=== PATIENT | female | born 1955 | race Hispanic/Latino ===

== ENCOUNTER 2017-01-12 12:22 | Day surgery (SDC) | payer MEDICARE, MEDICAID ==
[2015-08-15 13:03] VITALS: BMI 30.2
[2017-01-12] MEDS ORDERED: Lidocaine 2% Inj (20ml) ONE (12:58)
[2017-01-12] MEDS ORDERED: Iodixanol 320 MG/ML 200 ML BOTTLE IV ONE (12:59)
[2017-01-12] MEDS ORDERED: Nitroglycerin 50mg in D5W 50 MG/250 ML BOTTLE IV ONE (12:59)
[2017-01-12] MEDS ORDERED: Iohexol 350mgl/ml 50 ML ONE (12:59)
[2017-01-12] MEDS ORDERED: Iodixanol 320 MG/ML 100 ML BOTTLE IV ONE ×2 (12:59→15:49)
[2017-01-12 13:05] LABS: ADD MANUAL DIFF? NO
[2017-01-12 13:12] LABS: BASO # 0.03 K/mm3 (0.0-2.0); BASO % 0.5 % (0.0-3.0); EOS # 0.1 (0.0-0.7); EOS % 2.2 % (1.5-5.0); GRAN # 3.13 (1.4-6.5); GRAN % 49.6 % (50.0-68.0); HEMATOCRIT 38.6 % (36.0-48.0); LYMPH # 2.6 (1.2-3.4); LYMPH % 40.7 % (22.0-35.0); MEAN CELL VOLUME 89.4 fL (80.0-105.0); MEAN CORPUSCULAR HEMOGLOBIN 30.6 pg (25.0-35.0); MEAN CORPUSCULAR HGB CONC 34.2 g/dl (31.0-37.0); MEAN PLATELET VOLUME 9.8 fl (7.0-11.0); MONO # 0.4 (0.1-0.6); PLATELET COUNT 252 10^3/uL (120.0-450.0); RED CELL DISTRIBUTION WIDTH 14.9 % (11.5-14.5); WHITE BLOOD COUNT 6.3 10^3/ul (4.5-11.0)
[2017-01-12 13:20] LABS: BLOOD UREA NITROGEN 19 mg/dL (7-21); CALCIUM 9.6 mg/dL (8.4-10.5); CARBON DIOXIDE 29 mmol/L (21-33); CHLORIDE 101 mmol/L (98-107); GFR AFRICAN-AMERICAN > 60; GLUCOSE,RANDOM 97 mg/dL (70-110); POTASSIUM 3.8 mmol/L (3.6-5.0); SODIUM 139 mmol/L (132-148)
[2017-01-12 13:23] LABS: INR 0.96 (0.93-1.08); PARTIAL THROMBOPLASTIN TIME 27.5 Seconds (23.7-30.8)
--- NOTE | 2017-01-12 13:49 | CP.SDSHP ---
Same Day Surgery H & P - History Proposed Procedure: femoral angiogram. Pre-Op Diagnosis: PVD. - Previous Medical/Surgical History Cardiac: Hypertension, ASHD/CAD, PVD Pulmonary: Bronchitis, Smoking Endocrine/Metabolic: Thyroid Disease, Diabetes Neuro: Headaches, Backaches Misc: Anemia Pain: 0. No Pain - Allergies Allergies: Allergies clopidogrel [From Plavix] Allergy (Intermediate, Verified 01/11/17 11:40) RASH - Physical Exam General Appearance: wnl. Vital Signs: Vital Signs 01/12/17 13:14 Temperature 98 F Pulse Rate 65 Respiratory 20 Rate Blood Pressure 137/99 H O2 Sat by Pulse 100 Oximetry Mental Status: Alert & Oriented x3 Neuro: WNL Heart: WNL Lungs: WNL GI: WNL - {Optional Preform as Required} Other Pertinent Findings: gerd.hiatal hernia. - Impression Impression: PVD. - Date & Time Date: 01/12/17 Time: 13:49 Short Stay Discharge - Short Stay Discharge Admitting Diagnosis/Reason for Visit: I70.221 Disposition: HOME/ ROUTINE Referrals: Lauren Boston DO [Primary Care Provider] -
[2017-01-12] MEDS ORDERED: Midazolam 2 MG/2 ML VIAL ONE ×2 (14:02→15:41)
[2017-01-12] MEDS ORDERED: Oxycodone/Acetaminophen 5/325 mg Tab PO PRN (17:03)
--- NOTE | 2017-01-12 17:57 | VASCULAR ---
PROCEDURE: 1. Abdominal aortogram and bilateral lower extremity runoff with right selective views. 2. Distal right SFA silver Hawk atherectomy and drug-eluting balloon angioplasty HISTORY: Severe peripheral vascular disease. Ischemic pain right foot with digital gangrene. Smoker. Diabetes. PHYSICIAN(S): Bassem Ospina M.D. TECHNIQUE: The relative risks and indications of the procedure were explained to the patient and consent obtained. The patient was hydrated prior to the procedure and the appropriate labs drawn. The patient was placed supine on the arteriogram table and the left groin prepped and draped in the usual sterile fashion. Conscious sedation and monitoring were provided throughout the procedure by a nurse. Via a left common femoral artery approach, a 5 B[place]udian sheath was placed in the left groin. Through the sheath and over a guidewire, a 5 [place] flush catheter was placed in the abdominal aorta at the level of the renal arteries and a PA DSA abdominal aortogram performed. The catheter was pulled down to the aortic bifurcation and bilateral oblique DSA pelvic arteriograms performed. Overlapping bilateral lower extremity DSA arteriograms were obtained from the inguinal ligaments to the ankles. A 0.035 angled Glidewire was advanced over the bifurcation and placed in the mid right SFA.. A 7 [place]ian 45 cm destination sheath was placed in the proximal right SFA. Heparin 5000 units IV and nitroglycerin in 250 mcg aliquots were given. The short segment occlusion in the distal right SFA was crossed easily with a trail blazer catheter and angled Glidewire. Exchange was made for a 0.014 support guidewire. Silver Hawk atherectomy of the distal right SFA was performed with an LS catheter. Approximately 5 passes were performed. Improved but suboptimal result was obtained. The distal right SFA was dilated with 6 mm x 150 mm drug-eluting balloon. No stent was required. Completion angiograms were obtained. The sheath was removed and hemostasis obtained with a Perclose device. The patient tolerated the procedure well. FINDINGS: There are single renal arteries bilaterally which are widely patent and normal in appearance. The nephrograms are symmetric in appearance. The infrarenal abdominal aorta is widely patent without a radiographically significant stenosis. The aortic bifurcation is widely patent. The common and external iliac arteries are normal in appearance without a significant stenosis. The internal iliac arteries are patent bilaterally. Right lower extremity: The right common femoral artery is patent. The right profunda femoral artery is hypertrophied. There is a 5 cm calcified occlusion in the distal right SFA. The right popliteal artery is patent and continuous. The right trifurcation is intact. There is significant tibial occlusive disease. The right posterior tibial and peroneal arteries are occluded. The right anterior tibial artery is a predominant supply to the foot. The right anterior tibial artery occludes at the ankle. Collaterals are present. The right dorsalis pedis artery is occluded. There is occlusive disease of the plantar arch. There is severe pedal occlusive disease. Left lower extremity: Left common femoral artery is patent. The left profunda femoral artery is hypertrophied. There is a critical stenosis of the origin of the left SFA. It is 3-4 cm in length. There is calcified disease of the mid to lower left SFA which is continuous. The left popliteal artery is patent and continuous. The left trifurcation is intact. There is 1 vessel runoff on the left via the anterior tibial artery. The left posterior tibial and peroneal arteries are occluded. IMPRESSION: 1.Short segment distal right SFA occlusion. 2. Successful distal right SFA silver Hawk atherectomy and drug-eluting balloon angioplasty 3. Severe bilateral tibial disease 4. Extensive and severe right pedal occlusive disease. 5. Critical proximal left SFA stenosis.
--- NOTE | 2017-01-12 20:10 | CP.PCM.PN ---
Subjective - Date & Time of Evaluation Date of Evaluation: 01/12/17 Time of Evaluation: 20:10 - Subjective Subjective: Patient was seen at bedside because she had tachycardia 120-130's on monitor. Also complained of pain in right foot. BP 175/78, HR 130/ min.,afebrile. Received hydralazine 10 in PACU. States that she had an argument with her god mother and she is upset. Denies chest pain, sob, nausea,sweating , palpitations. This 61 year old white woman who had femoral angiogram done today is here for observation. Her BP was high in the PACU for which she was given Hydralazine. States that she takes perphenazine 4 mg at home for her nervousness problem. PMH :HTH, Bronchitis, anemia, DM, anemia, smoking, PVD. Objective - Vital Signs/Intake and Output Vital Signs (last 24 hours): Temp Pulse Resp BP Pulse Ox 98.1 F 98 H 18 152/76 H 100 01/12/17 18:35 01/12/17 18:35 01/12/17 18:35 01/12/17 18:35 01/12/17 17:20 - Medications Medications: Current Medications Acetaminophen (Tylenol 325mg Tab) 650 mg PO Q4H PRN PRN Reason: Pain, Mild (1-3) Sodium Chloride (Sodium Chloride 0.45%) 1,000 mls @ 80 mls/hr IV .[id number] [place] Ondansetron HCl (Zofran Inj) 4 mg IVP ONCE PRN PRN Reason: Nausea/Vomiting Oxycodone/Acetaminophen (Percocet 5/325 Mg Tab) 1 tab PO Q4H PRN PRN Reason: Pain, moderate (4-7) Stop: 01/15/17 17:04 - Labs Labs: 01/12/17 13:00 01/12/17 13:00 PT 10.4 Seconds (9.9-11.8) 01/12/17 13:00 INR 0.96 (0.93-1.08) 01/12/17 13:00 APTT 27.5 Seconds (23.7-30.8) 01/12/17 13:00 - Constitutional Appears: Well, No Acute Distress - Head Exam Head Exam: ATRAUMATIC, NORMAL INSPECTION, NORMOCEPHALIC - Eye Exam Eye Exam: Normal appearance - ENT Exam ENT Exam: Normal External Ear Exam - Neck Exam Neck Exam: Normal Inspection - Respiratory Exam Respiratory Exam: NORMAL BREATHING PATTERN - Cardiovascular Exam Cardiovascular Exam: absent: JVD - GI/Abdominal Exam GI & Abdominal Exam: absent: Distended - Rectal Exam Rectal Exam: Deferred - Extremities Exam Additional comments: Right 2nd, 3rd toes shows some ischemic changes. - Back Exam Back Exam: NORMAL INSPECTION - Neurological Exam Neurological Exam: Alert, Oriented x3 - Psychiatric Exam Psychiatric exam: Normal Affect, Normal Mood - Skin Skin Exam: Normal Color, Warm. absent: Pallor Assessment and Plan - Assessment and Plan (Free Text) Assessment: A/P:S/P femoral angiogram. PVD. Smoker. Anemia. HTN. Sinus tachycardia. Will hold discharge. EKG----------->Sinus tachycardia. CBC,BMP,Trop., Magnesium, Phos.level. Repeat EKG,trop., TSH in AM. Discussed with Dr.P Ospina. Ultram 50 mg x 1. Perphenazine 4 mg PO x 1.
[2017-01-12 21:04] LABS: HEMATOCRIT 35.6 % (36.0-48.0); MEAN CELL VOLUME 88.1 fL (80.0-105.0); MEAN CORPUSCULAR HEMOGLOBIN 30.4 pg (25.0-35.0); MEAN CORPUSCULAR HGB CONC 34.6 g/dl (31.0-37.0); MEAN PLATELET VOLUME 9.4 fl (7.0-11.0); RED CELL DISTRIBUTION WIDTH 14.7 % (11.5-14.5); WHITE BLOOD COUNT 9.2 10^3/ul (4.5-11.0)
[2017-01-12 21:13] LABS: BLOOD UREA NITROGEN 13 mg/dL (7-21); CALCIUM 9.2 mg/dL (8.4-10.5); CARBON DIOXIDE 27 mmol/L (21-33); CHLORIDE 103 mmol/L (98-107); GFR AFRICAN-AMERICAN > 60; GLUCOSE,RANDOM 153 mg/dL (70-110); MAGNESIUM 1.9 mg/dL (1.7-2.2); PHOSPHOROUS 2.8 mg/dL (2.5-4.5); POTASSIUM 3.4 mmol/L (3.6-5.0); SODIUM 138 mmol/L (132-148)
[2017-01-12] MEDS: Sodium Chloride 0.45% 1,000 ML IV SCH (21:20)
[2017-01-12] MEDS ORDERED: Potassium Chloride 20 mEq ER Tab PO ONE (21:40)
[2017-01-13 06:05] VITALS: TEMP 98.1; O2SAT 97
[2017-01-13] MEDS: Sodium Chloride 0.45% 1,000 ML IV SCH (06:49)
[2017-01-13 11:37] VITALS: BP 155/88; PULSE 101; RESP 22
--- NOTE | 2017-01-13 15:37 | CARD ---
APPROVED REPORT EKG Measurement Heart [id number] <Conclusion> Sinus tachycardia Nonspecific ST abnormality Abnormal ECG
--- NOTE | 2017-01-13 20:20 | DS ---
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 I first saw her approximately 2 years ago when she had microembolization to the left foot, which was treated conservatively and resolved. The patient is a diabetic who continues to actively smoke. She was referred by Dr. Bassem Collins due to the progressive rest pain and digital gangrene involving the right foot. An angiogram and bilateral lower extremity runoff was performed on 01/12/2017. A short segment occlusion of the distal right SFA was recanalized. Unfortunately , the patient has extensive right tibial and pedal occlusive disease. She has 1 -vessel runoff (right anterior tibial artery) which occludes at the ankle. There is advanced severe pedal occlusive disease. The dorsalis pedis artery and portions of the plantar arch are occluded. It is uncertain at this point whether the SFA recanalization will be enough to prevent a below-knee amputation in the future. The patient notes this morning that her rest pain has improved. The right toes are erythematous with areas of dry gangrene. Her popliteal pulse is now palpable on the right. Her right pedal pulses are not palpable. I have asked the patient to add aspirin 81 mg every day to her medications. She is to follow up on a weekly basis with Dr. Bassem Collins for wound care. I spoke recently with Dr. Collins. The patient cannot smoke and if her digital ischemia and gangrene does not improve, she may eventually require a below-knee amputation. Bassem Ospina MD cc: [id number] TT: 01/13/2017 20:20:03 marry COLLINS
== END 2017-01-13 14:14 | disposition home or self-care (01) ==
LOC: SDSVAS 12:22 → 2RSO 18:57 → SDSVAS 01-13 14:14
PROVIDERS: ATTEND Radiology Vascular & Interventional Radiology
DX: I70.261 Atherosclerosis of native arteries of extremities with gangrene, right leg (principal); E11.52 Type 2 diabetes mellitus with diabetic peripheral angiopathy with gangrene; F17.210 Nicotine dependence, cigarettes, uncomplicated; I25.10 Atherosclerotic heart disease of native coronary artery without angina pectoris; I10 Essential (primary) hypertension; R00.0 Tachycardia, unspecified; D64.9 Anemia, unspecified
CPT/HCPCS: 36415 ×2; 37225; 75625; 75716; 80048; 82948 ×2; 83735; 84100; 84443; 84484; 85025; 85027; 85610; 85730; 93005; 99152; C1725 ×3; C1760 ×2; C1764; C1769 ×3; C1887 ×2; C1894; J0360; J1644 ×2; J2250; J2405; J3010; J7030; Q0175; Q9967

== ENCOUNTER 2017-02-13 10:21 | Emergency (ER) | payer MEDICARE, MEDICAID ==
[2017-02-13 10:31] VITALS: BMI 29.2
[2017-02-13 10:48] VITALS: RESP 18; TEMP 98
[2017-02-13 10:57] LABS: ADD MANUAL DIFF? NO
[2017-02-13 11:01] LABS: BASO # 0.04 K/mm3 (0.0-2.0); BASO % 0.5 % (0.0-3.0); EOS # 0.2 (0.0-0.7); EOS % 2.2 % (1.5-5.0); GRAN # 4.69 (1.4-6.5); GRAN % 57.3 % (50.0-68.0); HEMATOCRIT 39.2 % (36.0-48.0); LYMPH # 2.7 (1.2-3.4); LYMPH % 33.2 % (22.0-35.0); MEAN CORPUSCULAR HEMOGLOBIN 30.2 pg (25.0-35.0); MEAN CORPUSCULAR HGB CONC 33.2 g/dl (31.0-37.0); MEAN PLATELET VOLUME 9.9 fl (7.0-11.0); MONO # 0.6 (0.1-0.6); MONO % 6.8 % (1.0-6.0); PLATELET COUNT 276 10^3/uL (120.0-450.0); RED CELL DISTRIBUTION WIDTH 14.6 % (11.5-14.5); WHITE BLOOD COUNT 8.2 10^3/ul (4.5-11.0)
--- NOTE | 2017-02-13 11:04 | ED PDOC ---
Arrival/HPI - General Historian: Patient - General Chief Complaint: Psychiatric Evaluation Time Seen by Provider: 02/13/17 10:36 - History of Present Illness Narrative History of Present Illness (Text): 02/13/17 12:03 61yo female with history of Depression and anxiety BIBA for anxiety. Patient states that she lost her daughter over the weekend and has become very anxious. states she spoke with her Psychiatrist and was advised to go to ED for medical clearance. States she is currently on Bupropion. she denies SI/HI, hallucination , drug use, any other compliant. (Jay,Umberto A) Past Medical History - Provider Review Nursing Documentation Reviewed: Yes - Infectious Disease Hx of Infectious Diseases: None - Tetanus Immunization Tetanus Immunization: Unknown - Reproductive Menopause: Yes - Cardiac Hx Pacemaker: No - Pulmonary Hx Respiratory Disorders: No - Neurological Hx Paralysis: No - Endocrine/Metabolic Hx Hypothyroidism: Yes - Hematological/Oncological Hx Blood Transfusions: No Hx Blood Transfusion Reaction: No - Musculoskeletal/Rheumatological Hx Musculoskeletal Disorders: Yes - Gastrointestinal Hx Gastrointestinal Disorders: Yes (GERD, GALL STONES) - Psychiatric Hx Anxiety: Yes Hx Depression: Yes Hx Substance Use: No - Surgical History Hx Section: Yes Hx Cholecystectomy: Yes Hx Hysterectomy: Yes - Anesthesia Hx Anesthesia Reactions: No Hx Malignant Hyperthermia: No - Suicidal Assessment Feels Threatened In Home Enviroment: No Family/Social History - Physician Review Nursing Documentation Reviewed: Yes Family/Social History: Unknown Family HX Smoking Status: Heavy Smoker > 10 Cigarettes Daily Hx Alcohol Use: No Hx Substance Use: No Hx Substance Use Treatment: No Allergies/Home Meds Allergies/Adverse Reactions: Allergies clopidogrel [From Plavix] Allergy (Intermediate, Verified 01/11/17 11:40) RASH Home Medications: Home Meds Medication Instructions Recorded Confirmed Cholecalciferol (Vitamin D3) 50,000 unit PO SUN 01/11/17 02/13/17 [Vitamin D3] Levothyroxine [Synthroid] 75 mcg PO QAM 01/11/17 02/13/17 Naproxen [Naprosyn] 500 mg PO PRN PRN 01/11/17 02/13/17 metFORMIN [glucOPHAGE] 500 mg PO BID 01/11/17 02/13/17 traMADol [Ultram] 50 mg PO QID PRN 01/11/17 02/13/17 Aspirin 81 mg PO DAILY 01/13/17 02/13/17 Review of Systems - Physician Review All systems were reviewed & negative as marked: Yes - Review of Systems Constitutional: Normal Eyes: Normal ENT: Normal Respiratory: Normal Cardiovascular: Normal Gastrointestinal: Normal Genitourinary Female: Normal Musculoskeletal: Normal Skin: Normal Neurological: Normal Endocrine: Normal Hemo/Lymphatic: Normal Psychiatric: Anxiety Physical Exam Vital Signs Reviewed: Yes Temperature: Afebrile Blood Pressure: Normal Pulse: Regular Respiratory Rate: Normal Appearance: Positive for: Well-Appearing, Non-Toxic, Comfortable Pain Distress: None Mental Status: Positive for: Alert and Oriented X 3 - Systems Exam Head: Present: Atraumatic, Normocephalic Pupils: Present: PERRL Extroacular Muscles: Present: EOMI Conjunctiva: Present: Normal Mouth: Present: Moist Mucous Membranes Neck: Present: Normal Range of Motion Respiratory/Chest: Present: Clear to Auscultation, Good Air Exchange. No: Respiratory Distress, Accessory Muscle Use Cardiovascular: Present: Regular Rate and Rhythm, Normal S1, S2. No: Murmurs Abdomen: Present: Normal Bowel Sounds. No: Tenderness, Distention, Peritoneal Signs Back: Present: Normal Inspection Upper Extremity: Present: Normal Inspection. No: Cyanosis, Edema Lower Extremity: Present: Normal Inspection. No: Edema Neurological: Present: GCS=15, CN II-XII Intact, Speech Normal Skin: Present: Warm, Dry, Normal Color. No: Rashes Psychiatric: Present: Alert, Oriented x 3, Normal Insight, Normal Concentration , Anxious, Agitated Vital Signs Temp Pulse Resp BP Pulse Ox 02/13/17 13:53 96 H 18 167/90 H 100 02/13/17 12:37 99 H 18 179/94 H 98 02/13/17 10:45 98 F 105 H 18 191/106 H 98 Medical Decision Making - EKG Interpretation Interpreted by ED Physician: Yes (Sinus tachy with ocassional PVC @110bpm) Comparison: Similar to previous EKG ED Course and Treatment: I was available for consultation during PA evaluation. The chart was reviewed by me, and I agree with disposition. The documented history was done by the physician surface supply breathing apparatus. The documented physical exam was done by the physician surface supply breathing apparatus. The documented procedures were done by the physician surface supply breathing apparatus. (Kyle Blair) 02/13/17 13:51 Pt was in ED for stated history. She was anxious on presentation but became calmer while in ED without medication or restraint. Her lab was reviewed. Small Leukocyte was noted in UA, pt was however asymptomatic and will be treated at this time. Her BP improved in ED. she was medically cleared for psych evaluation and was seen in ED by REUBEN Almaraz. She saw patient , states she DC with both inpatient psychiatrist and patient's psychiatrist and patient will be DC home to f/u with her Psychiatrist. (u,Happiness A) - Lab Interpretations Lab Results: 02/13/17 10:26 02/13/17 10:26 Lab Results 02/13/17 11:10: Urine Opiates Screen Negative, Urine Methadone Screen Negative, Ur Barbiturates Screen Negative, Ur Phencyclidine Scrn Negative, Ur Amphetamines Screen Negative, U Benzodiazepines Scrn Negative, U Oth Cocaine Metabols Negative, U Cannabinoids Screen Negative 02/13/17 11:10: Urine Color Yellow, Urine Appearance Sl cloudy, Urine pH 6.5, Ur Specific [place] <= 1.005, Urine Protein Negative, Urine Glucose (UA) 100 H, Urine Ketones Negative, Urine Blood Negative, Urine Nitrate Negative, Urine Bilirubin Negative, Urine Urobilinogen 0.2, Ur Leukocyte Esterase Small H, Urine RBC Negative, Urine WBC 5 - 10 02/13/17 10:26: Alcohol, Quantitative < 10 02/13/17 10:26: Salicylates < 1 L, Acetaminophen < 10.0 L 02/13/17 10:26: Sodium 141, Potassium 3.5 L, Chloride 102, Carbon Dioxide 27, Anion Gap 16, BUN 16, Creatinine 0.8, Est GFR ( Amer) > 60, Est GFR (Non- Af Amer) > 60, Random Glucose 163 H, Calcium 10.0, Total Bilirubin 0.3, AST 29, ALT 25, Alkaline Phosphatase 102, Total Protein 7.6, Albumin 4.5, Globulin 3.1, Albumin/Globulin Ratio 1.4 02/13/17 10:26: WBC 8.2, RBC 4.31, Hgb 13.0, Hct 39.2, MCV 91.0, MCH 30.2, MCHC 33.2, RDW 14.6 H, Plt Count 276, MPV 9.9, Gran % 57.3, Lymph % (Auto) 33.2, [place] % (Auto) 6.8 H, Eos % (Auto) 2.2, Baso % (Auto) 0.5, Gran # 4.69, Lymph # 2.7, [place] # 0.6, Eos # 0.2, Baso # 0.04 Disposition/Present on Arrival - Present on Arrival Any Indicators Present on Arrival: No History of DVT/PE: No History of Uncontrolled Diabetes: No Urinary Catheter: No History of Decub. Ulcer: No History Surgical Site Infection Following: None - Disposition Have Diagnosis and Disposition been Completed?: Yes Disposition Time: 13:40 Patient Plan: Discharge - Disposition Diagnosis: Anxiety Disposition: HOME/ ROUTINE Condition: STABLE Discharge Instructions (ExitCare): Anxiety (ED) Additional Instructions: Follow up with your Doctor/Psychiatrist Return to ED for any new or worsening symptoms Referrals: Roxy Warner, [Primary Care Provider] - Follow up with primary
[2017-02-13 11:10] LABS: ALB/GLOB RATIO 1.4 (1.1-1.8); ALKALINE PHOSPHATASE 102 U/L (38-133); ALT/SGPT 25 U/L (7-56); AST/SGOT 29 U/L (15-39); BILIRUBIN,TOTAL 0.3 mg/dL (0.2-1.3); BLOOD UREA NITROGEN 16 mg/dL (7-21); CARBON DIOXIDE 27 mmol/L (21-33); CHLORIDE 102 mmol/L (95-110); GFR AFRICAN-AMERICAN > 60; GLUCOSE,RANDOM 163 mg/dL (70-110); POTASSIUM 3.5 mmol/L (3.6-5.0); SODIUM 141 mmol/L (132-148); TOTAL PROTEIN 7.6 g/dL (5.8-8.3)
[2017-02-13 11:20] LABS: PH,URINE 6.5 (4.7-8.0); URINE BILIRUBIN NEGATIVE (NEGATIVE); URINE BLOOD NEGATIVE (NEGATIVE); URINE GLUCOSE (UA) 100 mg/dL (NEGATIVE); URINE KETONE NEGATIVE (NEGATIVE); URINE LEUKOCYTE ESTERASE SMALL Leu/uL (NEGATIVE); URINE PROTEIN NEGATIVE mg/dL (<30 mg/dL); URINE UROBILINOGEN 0.2 E.U./dL (<1 E.U./dL)
[2017-02-13 11:21] LABS: URINE APPEARANCE SL CLOUDY (CLEAR); URINE COLOR YELLOW (YELLOW)
[2017-02-13 11:37] LABS: URINE RBC NEGATIVE /hpf (0-2)
[2017-02-13 13:54] VITALS: BP 167/90; PULSE 96; O2SAT 100
--- NOTE | 2017-02-14 09:22 | CARD ---
APPROVED REPORT EKG Measurement Heart [id number] <Conclusion> Sinus tachycardia with one premature ventricular complex STTW changes c/w ischemia Prolonged QTc
== END 2017-02-13 13:54 | disposition home or self-care (01) ==
LOC: ED 10:21
DX: F41.9 Anxiety disorder, unspecified (principal); F32.9 Major depressive disorder, single episode, unspecified
CPT/HCPCS: 80053; 81001; 85025; 87086; 90791; 93005; 99283; G0480

== ENCOUNTER 2017-03-06 17:28 | Emergency (ER) | payer MEDICARE, MEDICAID ==
[2017-03-06 17:37] VITALS: RESP 18; TEMP 98.2; BMI 26.6
--- NOTE | 2017-03-06 17:52 | ED PDOC ---
Arrival/HPI - General Time Seen by Provider: 03/06/17 17:42 Historian: Patient - History of Present Illness Narrative History of Present Illness (Text): 03/06/17 17:48 61 y/o female, pmh including dm/hypothyroidism, allergic to the plavix, biba c/ o lt. lateral foot pain s/p slipped and twisted while taking the shower x 2 hours. Aching pain, painful to bear weight on the left foot, no calf pain, no thigh pain, no hip pain, no fall, no head or neck injury, no rash, no weakness, no other medical or psychological complaints. Past Medical History - Provider Review Nursing Documentation Reviewed: Yes - Infectious Disease Hx of Infectious Diseases: None - Tetanus Immunization Tetanus Immunization: Unknown - Cardiac Hx Cardiac Disorders: No Hx Pacemaker: No - Pulmonary Hx Respiratory Disorders: No - Neurological Hx Neurological Disorder: No Hx Paralysis: No - HEENT Hx HEENT Disorder: No - Renal Hx Renal Disorder: No - Endocrine/Metabolic Hx Endocrine Disorders: Yes Hx Diabetes Mellitus Type 2: Yes ("borderline") Hx Hypothyroidism: Yes - Hematological/Oncological Hx Blood Disorders: No Hx Blood Transfusions: No Hx Blood Transfusion Reaction: No - Integumentary Hx Dermatological Disorder: No - Musculoskeletal/Rheumatological Hx Musculoskeletal Disorders: Yes - Gastrointestinal Hx Gastrointestinal Disorders: Yes (GERD, GALL STONES) - Genitourinary/Gynecological Hx Genitourinary Disorders: No Hx Sexually Transmitted Diseases: No - Psychiatric Hx Psychophysiologic Disorder: Yes Hx Anxiety: Yes Hx Depression: Yes Hx Substance Use: No - Surgical History Hx Section: Yes Hx Cholecystectomy: Yes Hx Hysterectomy: Yes Other/Comment: Stents to right leg - Anesthesia Hx Anesthesia Reactions: No Hx Malignant Hyperthermia: No - Suicidal Assessment Feels Threatened In Home Enviroment: No Family/Social History - Physician Review Nursing Documentation Reviewed: Yes Family/Social History: Unknown Family HX Smoking Status: Former Smoker Hx Alcohol Use: No Hx Substance Use: No Hx Substance Use Treatment: No Allergies/Home Meds Allergies/Adverse Reactions: Allergies clopidogrel [From Plavix] Allergy (Intermediate, Verified 03/06/17 17:41) RASH Home Medications: Home Meds Medication Instructions Recorded Confirmed Levothyroxine [Synthroid] 0 mcg PO QAM 01/11/17 03/06/17 metFORMIN [glucOPHAGE] 0 mg PO BID 01/11/17 03/06/17 Review of Systems - Review of Systems Constitutional: absent: Fatigue, Fevers Eyes: absent: Vision Changes Respiratory: absent: SOB, Cough Cardiovascular: absent: Chest Pain Gastrointestinal: absent: Abdominal Pain, Diarrhea, Nausea, Vomiting Musculoskeletal: Arthralgias. absent: Back Pain, Neck Pain, Joint Swelling, Myalgias Neurological: absent: Headache, Dizziness, Gait Changes, Speech Changes, Seizure Physical Exam Vital Signs Reviewed: Yes Vital Signs Temp Pulse Resp BP Pulse Ox 03/06/17 17:36 98.2 F 82 18 144/71 97 Temperature: Afebrile Blood Pressure: Normal Pulse: Regular Respiratory Rate: Normal Appearance: Positive for: Well-Appearing, Non-Toxic, Comfortable Pain Distress: Mild Mental Status: Positive for: Alert and Oriented X 3 - Systems Exam Head: Present: Atraumatic, Normocephalic Pupils: Present: PERRL Extroacular Muscles: Present: EOMI Conjunctiva: Present: Normal Mouth: Present: Moist Mucous Membranes Neck: Present: Normal Range of Motion Respiratory/Chest: Present: Clear to Auscultation, Good Air Exchange. No: Respiratory Distress, Accessory Muscle Use Cardiovascular: Present: Regular Rate and Rhythm, Normal S1, S2. No: Murmurs Abdomen: Present: Normal Bowel Sounds. No: Tenderness, Distention, Peritoneal Signs Back: Present: Normal Inspection Upper Extremity: Present: Normal Inspection. No: Cyanosis, Edema Lower Extremity: Present: Normal Inspection, Other (Lt. lower extremity: +ttp on the lateral aspect of the foot metatarsal region with mild swelling, no hip/ thigh/knee/calf/ankle tenderness or swelling, no joint laxity, FROM without limitation, sensation intact, motor 5/5, +DPPT pulses, capillary refill< 2 seconds, neurovascular intact. ). No: Edema Neurological: Present: GCS=15, CN II-XII Intact, Speech Normal Skin: Present: Warm, Dry, Normal Color. No: Rashes Psychiatric: Present: Alert, Oriented x 3, Normal Insight, Normal Concentration Medical Decision Making ED Course and Treatment: 03/06/17 17:51 -Pt. refused avilez medication -lt. foot xray 03/06/17 18:21 -Lt. foot xray show no fracture or dislocation. -Liu wrap applied, crutches given, will discharge home. -Discharge home with naproxen, liu wrap, crutches, ice compression, non-weight bearing, follow up with your own pmd and it architecture consultant within 2 days, return to the ER for any new or worsening signs or symptoms. 03/06/17 18:38 -pt. request pain med now, motrin 600mg po ordered. - RAD Interpretation Radiology Orders: 03/06/17 17:47 FOOT LEFT 3 VIEWS ROUTINE [RAD] Stat - PA / [employer] / Resident Statement / has reviewed & agrees with the documentation as recorded. Disposition/Present on Arrival - Present on Arrival Any Indicators Present on Arrival: No History of DVT/PE: No History of Uncontrolled Diabetes: No Urinary Catheter: No History of Decub. Ulcer: No History Surgical Site Infection Following: None - Disposition Have Diagnosis and Disposition been Completed?: Yes Diagnosis: Foot injury, Foot pain Disposition: HOME/ ROUTINE Disposition Time: 17:57 Patient Plan: Discharge Patient Problems: Current Active Problems Problem Status Onset Foot injury Acute Foot pain Acute Condition: GOOD Additional Instructions: Discharge home with naproxen, liu wrap, crutches, ice compression, non-weight bearing, follow up with your own pmd and it architecture consultant within 2 days, return to the ER for any new or worsening signs or symptoms. Prescriptions: Naproxen 500 mg PO BID PRN #20 tab PRN Reason: Other Referrals: Lauren Boston DO [Primary Care Provider] - Follow up with primary Martin Grover DPM [Staff Provider] - Follow up with primary Forms: WORK NOTE
[2017-03-06 18:51] VITALS: BP 140/75; PULSE 78; O2SAT 99
--- NOTE | 2017-03-07 08:02 | RAD ---
PROCEDURE: Left Foot Radiographs. HISTORY: lt. lateral foot injury and pain x 2 hours. COMPARISON: None. FINDINGS: BONES: No fracture. First metatarsal-phalangeal joint arthrosis JOINTS: As above SOFT TISSUES: Normal. OTHER FINDINGS: None. IMPRESSION: No fracture. First Metatarsal-phalangeal joint arthrosis
== END 2017-03-06 18:51 | disposition home or self-care (01) ==
LOC: ED 17:28
DX: M79.672 Pain in left foot (principal); S99.922A Unspecified injury of left foot, initial encounter; W01.0XXA Fall on same level from slipping, tripping and stumbling without subsequent striking against object, initial encounter; Y93.E1 Activity, personal bathing and showering; E11.9 Type 2 diabetes mellitus without complications

== ENCOUNTER 2018-04-13 11:15 | Emergency (ER) | payer MEDICARE, MEDICAID ==
[2018-04-13 11:16] VITALS: BMI 26.6
[2018-04-13 11:59] VITALS: TEMP 98.9
[2018-04-13 12:03] VITALS: RESP 18
--- NOTE | 2018-04-13 12:32 | ED PDOC ---
Arrival/HPI - General Historian: Patient - History of Present Illness Time/Duration: < week Symptom Onset: Gradual Symptom Course: Unchanged, Worsening Context: Other (new medicine) <Yandel Munoz - Last Filed: 04/13/18 15:35> <Silvio Alberto - Last Filed: 04/13/18 19:38> - General Chief Complaint: Anxiety Time Seen by Provider: 04/13/18 12:02 - History of Present Illness Narrative History of Present Illness (Text): 04/13/18 12:26 Patient is a 62 year old female with PMH of hypothyroidism, pre-diabetes, and past psych hx of depression, anxiety who presents to ED with worsening anxiety following a medication change. She states that her psychiatrist had previously started her on bupropion as a smoking cessation aid. She stopped her prior medications (amytryptyline and perphenazine) about a year ago and was fine up until a month ago when buproprion was started. She stopped taking bupropion after only a few days then because of worsening anxiety. About a week ago, she saw her psychiatrist again and was prescribed hydroxyzine 50 mg BID for help with the anxiety and bupropion was restarted. Patient states that she is having worsening anxiety since restarting the buproprion even though she has been taking the hydroxyzine. She also reports some intermittent SOB, worsening neck pain, blurry vision, BURR, nausea/vomiting x 2 last night. She denies fever, chills, chest pain. (Yandel Munoz) Past Medical History - Provider Review Nursing Documentation Reviewed: Yes - Infectious Disease Hx of Infectious Diseases: None - Tetanus Immunization Tetanus Immunization: Unknown - Cardiac Hx Cardiac Disorders: No Hx Pacemaker: No - Pulmonary Hx Respiratory Disorders: No - Neurological Hx Neurological Disorder: No - HEENT Hx HEENT Disorder: No - Renal Hx Renal Disorder: No - Endocrine/Metabolic Hx Endocrine Disorders: Yes Hx Diabetes Mellitus Type 2: Yes Hx Hypothyroidism: Yes - Hematological/Oncological Hx Blood Disorders: No - Integumentary Hx Dermatological Disorder: No - Musculoskeletal/Rheumatological Hx Musculoskeletal Disorders: Yes - Gastrointestinal Hx Gastrointestinal Disorders: Yes Hx Gall Bladder Disease: Yes Hx Gastroesophageal Reflux: Yes - Genitourinary/Gynecological Hx Genitourinary Disorders: No Hx Sexually Transmitted Diseases: No - Psychiatric Hx Psychophysiologic Disorder: Yes Hx Anxiety: Yes Hx Depression: Yes Hx Substance Use: No - Surgical History Hx Section: Yes Hx Cholecystectomy: Yes Hx Hysterectomy: Yes Other/Comment: Stents to right leg - Anesthesia Hx Anesthesia Reactions: No Hx Malignant Hyperthermia: No - Suicidal Assessment Feels Threatened In Home Enviroment: No <Yandel Munoz - Last Filed: 04/13/18 15:35> Family/Social History - Physician Review Nursing Documentation Reviewed: Yes Family/Social History: No Known Family HX Smoking Status: Current Some Days Smoker (prior heavy smoker, has been cutting back due to starting bupropion, smoked 1 PPD for >30 years previously) Hx Alcohol Use: No Hx Substance Use: No Hx Substance Use Treatment: No <Yandel Munoz - Last Filed: 04/13/18 15:35> Allergies/Home Meds <Yandel Munoz - Last Filed: 04/13/18 15:35> <Silvio Alberto - Last Filed: 04/13/18 19:38> Allergies/Adverse Reactions: Allergies clopidogrel [From Plavix] Allergy (Intermediate, Verified 04/13/18 11:52) RASH Home Medications: Home Meds Medication Instructions Recorded Confirmed Levothyroxine [Synthroid] 88 mcg PO QAM 01/11/17 03/06/17 metFORMIN [glucOPHAGE] 0 mg PO BID 01/11/17 04/13/18 buPROPion SR [Wellbutrin SR 150 MG] 150 mg PO DAILY 04/13/18 04/13/18 hydrOXYzine Pamoate [Vistaril] 50 mg PO BID 04/13/18 04/13/18 Review of Systems - Review of Systems Constitutional: absent: Fatigue, Weight Change, Fevers Eyes: Vision Changes, Photophobia. absent: Eye Pain ENT: absent: Hearing Changes, Sore Throat, Rhinorrhea Respiratory: SOB. absent: Cough, Wheezing Cardiovascular: Palpitations. absent: Chest Pain, Edema Gastrointestinal: Abdominal Pain, Nausea, Vomiting. absent: Stool Changes, Diarrhea Genitourinary Female: absent: Dysuria, Frequency Musculoskeletal: Neck Pain. absent: Arthralgias Skin: absent: Rash, Pruritis Neurological: Headache, Dizziness. absent: Speech Changes, Facial Droop, Seizure Endocrine: absent: Diaphoresis Hemo/Lymphatic: absent: Adenopathy Psychiatric: Anxiety. absent: Depression, Suicidal Ideation <Yandel Munoz - Last Filed: 04/13/18 15:35> - Physician Review All systems were reviewed & negative as marked: Yes <Silvio Alberto - Last Filed: 04/13/18 19:38> Physical Exam Vital Signs Reviewed: Yes Temperature: Afebrile Blood Pressure: Normal Pulse: Regular Respiratory Rate: Normal Appearance: Positive for: Uncomfortable Pain Distress: Moderate Mental Status: Positive for: Alert and Oriented X 3, Agitated - Systems Exam Head: Present: Atraumatic, Normocephalic Pupils: Present: PERRL Extroacular Muscles: Present: EOMI Ears: Present: Normal Mouth: Present: Moist Mucous Membranes Pharnyx: Present: Normal. No: ERYTHEMA, EXUDATE, TONSILS ENLARGED, Peritonsilar Swelling, Soft Palate/Uvular Edema Nose (External): Present: Atraumatic Neck: Present: Normal Range of Motion. No: Meningeal Signs, Paraspinal Tenderness, JVD Respiratory/Chest: Present: Clear to Auscultation. No: Wheezes, Rales, Rhonchi Cardiovascular: Present: Regular Rate and Rhythm, Normal S1, S2. No: Murmurs, Rub, Gallop Abdomen: Present: Normal Bowel Sounds. No: Tenderness, Rebound, Guarding Back: Present: Normal Inspection. No: CVA Tenderness, Paraspinal Tenderness Upper Extremity: Present: Normal Inspection. No: Cyanosis, Edema Lower Extremity: Present: Normal Inspection. No: Edema Neurological: Present: CN II-XII Intact, Speech Normal, Motor Func Grossly Intact, Normal Sensory Function, Norm Deep Tendon Reflexes, Gait Normal Skin: Present: Warm, Dry Psychiatric: Present: Alert, Oriented x 3, Anxious. No: Depressed Mood, Suicidal Ideation, Homicidal Ideation <Yandel Munoz - Last Filed: 04/13/18 15:35> Vital Signs Temp Pulse Resp BP Pulse Ox 04/13/18 15:38 98.9 F 87 18 154/84 H 100 04/13/18 14:00 98.9 F 90 18 161/84 H 95 04/13/18 12:03 98.9 F 86 18 178/84 H 97 04/13/18 11:54 98.9 F 86 21 178/84 H 97 Medical Decision Making - Lab Interpretations I have reviewed the lab results: Yes Interpretation: All labs normal (with small amount of leukocyte esterase, but pt without pyuria and is not symptomatic) - RAD Interpretation Potato Chip Frier: Radiologist - EKG Interpretation Interpreted by ED Physician: Yes Type: 12 lead EKG Comparison: No previous EKG avail. <Yandel Munoz - Last Filed: 04/13/18 15:35> <Silvio Alberto - Last Filed: 04/13/18 19:38> ED Course and Treatment: 04/13/18 15:14 CXR, EKG, Labs all within normal limits. Her anxiety is greatly improved s/p ativan, benadryl, and metoclopramide. Plan to discharge patient on half the dose (150 mg daily) of bupropion and double the dose of hydroxyzine (100 mg BID) . Encouraged patient to drink plenty of fluids while on hydroxyzine. Encouraged follow up with her psychiatrist within 2 weeks as she has started new medicines. 04/13/18 15:27 (AlexanderYandel) 04/13/18 12:05 Impression: 62 year old female who presents to the Emergency department complaining of feeling anxious and disoriented. In agreement with resident note, which includes further HPI details. Patient was seen and evaluated with resident, came up with plan and treatment together. Plan: -- EKG -- Labs -- X-Ray of chest -- Tylenol -- Benadryl -- Reglan -- Ativan -- Urinalysis, routine -- Reassess and disposition Prior Visits: Notes and results from previous visits were reviewed. Progress Notes: Chest X-ray reviewed by radiologist, shows: Report Date : 04/13/2018 13:18:03 Creator : Pernell Pittman MD Dictator : Pernell Pittman MD Audio Narrator : Pernell Pittman MD FINDINGS: LUNGS: No active pulmonary disease. PLEURA: No significant pleural effusion identified, no pneumothorax apparent. CARDIOVASCULAR: Normal. OSSEOUS STRUCTURES: No significant abnormalities. VISUALIZED UPPER ABDOMEN: Normal. OTHER FINDINGS: None. IMPRESSION: No active disease. EKG: Ordered, reviewed, and independently interpreted the EKG. Rate : 89 BPM Rhythm : NSR Interpretation : No ST-segment elevations or depressions, no T-wave inversions, normal intervals. (Silvio Alberto) - Lab Interpretations Lab Results: 04/13/18 12:40 04/13/18 12:40 Lab Results 04/13/18 13:08: Urine Color Yellow, Urine Appearance Clear, Urine pH 6.0, Ur Specific [place] 1.025, Urine Protein Trace H, Urine Glucose (UA) Negative, Urine Ketones Negative, Urine Blood Trace-lysed H, Urine Nitrate Negative, Urine Bilirubin Negative, Urine Urobilinogen 0.2, Ur Leukocyte Esterase Small H , Urine RBC 0 - 2, Urine WBC 10 - 15, Ur Epithelial Cells 0 - 2, Urine Bacteria Few 04/13/18 12:40: Thyroxine (T4) 10.0, Total T3 1.13, TSH 3rd Generation 2.74 04/13/18 12:40: Sodium 140, Potassium 3.8, Chloride 104, Carbon Dioxide 26, Anion Gap 14, BUN 29 H, Creatinine 0.8, Est GFR ( Amer) > 60, Est GFR ( Non-Af Amer) > 60, Random Glucose 97, Calcium 10.1, Phosphorus 3.3, Magnesium 1.8, Total Bilirubin 0.4, AST 46 H, ALT 33, Alkaline Phosphatase 88, Total Protein 7.4, Albumin 4.4, Globulin 3.0, Albumin/Globulin Ratio 1.5 04/13/18 12:40: WBC 7.0, RBC 4.29, Hgb 12.9, Hct 37.9, MCV 88.3, MCH 30.1, MCHC 34.0, RDW 13.9, Plt Count 227, MPV 9.4, Gran % 49.0 L, Lymph % (Auto) 41.7 H, [place] % (Auto) 6.9 H, Eos % (Auto) 2.0, Baso % (Auto) 0.4, Gran # 3.40, Lymph # ( Auto) 2.9, Foard # (Auto) 0.5, Eos # (Auto) 0.1, Baso # (Auto) 0.03 - RAD Interpretation Narrative RAD Interpretations (Text): 04/13/18 15:[address] Pernell Morales MD COMPARISON: 08/14/2013 FINDINGS: LUNGS: No active pulmonary disease. PLEURA: No significant pleural effusion identified, no pneumothorax apparent. CARDIOVASCULAR: Normal. OSSEOUS STRUCTURES: No significant abnormalities. VISUALIZED UPPER ABDOMEN: Normal. OTHER FINDINGS: None. IMPRESSION: No active disease. (Yandel Munoz) Radiology Orders: 04/13/18 12:25 CHEST PORTABLE [RAD] Routine - EKG Interpretation EKG Interpretation (Text): 04/13/18 13:32 normal sinus rhythm no QT prolongation (Yandel Munoz) - Medication Orders Current Medication Orders: Discontinued Medications Acetaminophen (Tylenol 325mg Tab) 650 mg PO STAT STA Stop: 04/13/18 13:07 Last Admin: 04/13/18 13:23 Dose: 650 mg MAR Pain/Vitals Document 04/13/18 13:23 [place] (Rec: 04/13/18 13:23 [place] [facility] Pain Reassessment Is This A Pain ReAssessment? No Sleep Is patient sleeping during reassessment? No Presence of Pain Presence of Pain No Diphenhydramine HCl (Benadryl) 25 mg IVP STAT STA Stop: 04/13/18 13:06 Last Admin: 04/13/18 13:22 Dose: 25 mg IVP Administration Document 04/13/18 13:22 [place] (Rec: 04/13/18 13:22 [place] [facility] Charges for Administration # of IVP Administrations 1 Lorazepam (Ativan) 0.5 mg IVP ONCE ONE PRN Reason: Protocol Stop: 04/13/18 13:05 Last Admin: 04/13/18 13:21 Dose: 0.5 mg IVP Administration Document 04/13/18 13:21 [place] (Rec: 04/13/18 13:22 [place] [facility] Charges for Administration # of IVP Administrations 1 Metoclopramide HCl (Reglan) 20 mg IVP STAT STA Stop: 04/13/18 13:06 Last Admin: 04/13/18 13:22 Dose: 20 mg IVP Administration Document 04/13/18 13:22 [place] (Rec: 04/13/18 13:22 [place] [facility] Charges for Administration # of IVP Administrations 1 <AlexanderYandel - Last Filed: 04/13/18 15:35> - PA / REPORT CLERK / Resident Statement MD/ has reviewed & agrees with the documentation as recorded. MD/ has examined the patient and agrees with the treatment plan. - Scribe Statement The provider has reviewed the documentation as recorded by the Scribe <Silvio Alberto - Last Filed: 04/13/18 19:38> - Scribe Statement Ana Matthews All medical record entries made by the Scribe were at my direction and personally dictated by me. I have reviewed the chart and agree that the record accurately reflects my personal performance of the history, physical exam, medical decision making, and the department course for this patient. I have also personally directed, reviewed, and agree with the discharge instructions and disposition. (Silvio Alberto) Disposition/Present on Arrival - Present on Arrival Any Indicators Present on Arrival: No History of DVT/PE: No History of Uncontrolled Diabetes: No Urinary Catheter: No History of Decub. Ulcer: No History Surgical Site Infection Following: None - Disposition Have Diagnosis and Disposition been Completed?: Yes Disposition Time: 15:00 Patient Plan: Discharge <MunozYandel - Last Filed: 04/13/18 15:35> <Silvio Alberto - Last Filed: 04/13/18 19:38> - Disposition Diagnosis: Anxiety and depression Disposition: HOME/ ROUTINE Condition: FAIR Discharge Instructions (ExitCare): Depression, Adult (DC), Anxiety, Adult (DC) Additional Instructions: Please take half the dose of your bupropion and double the hydroxyzine. If your symptoms continue after a few days of half the dose of bupropion, stop the bupropion all together. Either way, follow up with your psychiatrist within 2 weeks. Prescriptions: hydrOXYzine HCl [Atarax] 100 mg PO BID #56 tab Forms: [employer] (Telugu)
[2018-04-13 12:58] LABS: BASO # 0.03 K/mm3 (0.0-2.0); BASO % 0.4 % (0.0-3.0); EOS # 0.1 (0.0-0.7); GRAN # 3.4 (1.4-6.5); HEMOGLOBIN 12.9 g/dL (12.0-16.0); LYMPH # 2.9 (1.2-3.4); LYMPH % 41.7 % (22.0-35.0); MEAN CELL VOLUME 88.3 fl (80.0-105.0); MEAN CORPUSCULAR HEMOGLOBIN 30.1 pg (25.0-35.0); MEAN PLATELET VOLUME 9.4 fl (7.0-11.0); MONO # 0.5 (0.1-0.6); MONO % 6.9 % (1.0-6.0); RBC 4.29 10^6/uL (3.5-6.1); RED CELL DISTRIBUTION WIDTH 13.9 % (11.5-14.5)
[2018-04-13] MEDS ORDERED: DiphenhydrAMINE 50 mg/ml Inj IVP STA (13:05)
[2018-04-13 13:11] LABS: ALB/GLOB RATIO 1.5 (1.1-1.8); ALBUMIN 4.4 g/dL (3.0-4.8); ALT/SGPT 33 U/L (7-56); AST/SGOT 46 U/L (14-36); BLOOD UREA NITROGEN 29 mg/dL (7-21); CALCIUM 10.1 mg/dL (8.4-10.5); GFR AFRICAN-AMERICAN > 60; GFR NON-AFRICAN AMERICAN > 60
--- NOTE | 2018-04-13 13:24 | RAD ---
Date of service: 04/13/2018 HISTORY: SOB COMPARISON: 08/14/2013 FINDINGS: LUNGS: No active pulmonary disease. PLEURA: No significant pleural effusion identified, no pneumothorax apparent. CARDIOVASCULAR: Normal. OSSEOUS STRUCTURES: No significant abnormalities. VISUALIZED UPPER ABDOMEN: Normal. OTHER FINDINGS: None. IMPRESSION: No active disease.
[2018-04-13 13:31] LABS: URINE APPEARANCE CLEAR (CLEAR); URINE BILIRUBIN NEGATIVE (NEGATIVE); URINE BLOOD TRACE-LYSED (NEGATIVE); URINE COLOR YELLOW (YELLOW); URINE GLUCOSE (UA) NEGATIVE (NEGATIVE); URINE LEUKOCYTE ESTERASE SMALL Leu/uL (NEGATIVE); URINE PROTEIN TRACE mg/dL (<30 mg/dL); URINE UROBILINOGEN 0.2 E.U./dL (<1 E.U./dL)
[2018-04-13 13:41] LABS: T3 1.13 ng/mL (0.97-1.69)
[2018-04-13 13:48] LABS: URINE BACTERIA FEW (NEG); URINE EPITHELIAL CELLS 0 - 2 /hpf (0-5); URINE RBC 0 - 2 /hpf (0-2)
[2018-04-13 15:40] VITALS: BP 154/84; PULSE 87; O2SAT 100
--- NOTE | 2018-04-14 05:25 | CARD ---
APPROVED REPORT Date of service: 04/13/2018 EKG Measurement Heart [id number] <Conclusion> Normal sinus rhythm Normal ECG
== END 2018-04-13 15:38 | disposition home or self-care (01) ==
LOC: ED 11:15
DX: F41.9 Anxiety disorder, unspecified (principal); F32.9 Major depressive disorder, single episode, unspecified; E03.9 Hypothyroidism, unspecified; R73.03 Prediabetes
CPT/HCPCS: 71045; 80053; 81001; 83735; 84100; 84436; 84443; 84480; 85025; 87086; 93005; 96374; 96375; 99284; J1200; J2060; J2765